=== PATIENT | male | born 1965 | race Caucasian/White ===

== ENCOUNTER 2017-09-01 10:26 | Emergency (ER) | payer OTHER ==
[2017-09-01] MEDS ORDERED: LET GEL TOPICAL 1 EA SYR TP ONE ×2 (10:41→11:56)
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
[2017-09-01 12:49] VITALS: BP 123/79
== END 2017-09-01 12:48 | disposition home or self-care (01) ==
DX: S06.0X0A Concussion without loss of consciousness, initial encounter (principal); S00.31XA Abrasion of nose, initial encounter; S50.812A Abrasion of left forearm, initial encounter; S50.312A Abrasion of left elbow, initial encounter; S80.211A Abrasion, right knee, initial encounter; V18.4XXA Pedal cycle driver injured in noncollision transport accident in traffic accident, initial encounter; Y92.410 Unspecified street and highway as the place of occurrence of the external cause; Y99.8 Other external cause status; Y93.55 Activity, bike riding